=== PATIENT | female | born 1950 | race Caucasian/White ===

== ENCOUNTER 2023-03-23 10:56 | Emergency (ER) | payer OTHER, SELFPAY ==
[2023-03-23 10:56] VITALS: BP 153/89
--- NOTE | 2023-03-23 12:21 | ED.GENMED ---
History of Present Illness
General
Chief Complaint: Fall
Source: patient
Exam Limitations: none
Time Seen by Provider: 03/23/23 11:14
Nursing documentation reviewed up to this point in time: agreed with
Travel History
Have you had any contact with someone who has COVID-19?: No
Do you have any symptoms of coronavirus? Fever > 100 degrees, chills, cough, shortness of breath, sore throat, loss of taste or smell, muscle aches, or headache?: No
History of Present Illness
History of Present Illness:
pt is a 72 y/o F with h/o cad, htn, hld, bipolar
here after mechanical slip and fall on ice backwards onto buttocks. having pain in her lower back/sacrum as well as under both buttocks and in both hips
she had remote L THR and she has chronically shortened L leg which causes her to fall sometimes
she says she landed onto her buttocks, did strike her head but no LOC and no headache, no thinners
she was able to get herself back up and walk in her house. she took tylenol 1300 mg but is having pain with changing positions and walking
she has no radiating pain down legs, incontinence, fever, chills, headache, neck pain, cp, sob, abdominal pain.
Past History
Past History
ED Past Medical History: HTN, Hypercholesterolemia, Psychiatric (A/D, bipolar) and Other (Colitis, DVT in the past)
ED Past Surgical History: Gynecological and Orthopedic
Social History
Tobacco: Former smoker
Alcohol: None
Drug: None
Personal: Single
Living: alone
Employment: Employed
Family History
Family History: Other (COPD, lung cancer)
Review of Systems
Review of Systems
Allergies reviewed?: Yes
All Other Systems: Not applicable
Phy Exam
Physical Exam
Physical Exam:
GENERAL: Alert , in no apparent distress
HEAD: NCAT
NECK: no midline tenderness, active ROM intact, no paraspinal muscle tenderness;
EYE: pupils equal and reactive, EOMs intact.
ENT: o/p clr, mmm. no hemotympanum
CARDIAC: Regular rate and rhythm, no edema
LUNGS: Clear breath sounds bilaterally, no acute respiratory distress, no wheezes/rales/rhonchi
ABDOMEN: Soft, without focal tenderness, no r/g, no cvat
NEUROLOGICAL: Alert and oriented, no focal neuro deficits, CN intact, 5/5 strength, sensation intact
SKIN: Warm and dry,
back : sacral midline tendnress mild
bruising just lateral on the left of sacrum
tender under both buttocks b/l without bruising
pain with hip flexion and ortation on both sides
pain swith changing position in her back, flexion
neg straight leg raise
MUSCULOSKELETAL L leg significantly shorter than right, not rotated; this is chronic; pain with hip range of motion
PSYCH: Normal and appropriate interaction.
Course
Orders/Labs/Results
Orders:
Orders
03/23/23 11:44
Hips, Bilat 3-4 view W/AP Pelvis [CR Hips LACEY w/wo Pel 3-4 Vw] Urgent
Comment:
Reason For Exam: fall, L>R hip pain
Include a pelvis x-ray?: Yes
Lumbar Spine Complete, 4 View [CR Lumbar Spine Comp Min 4 Vw*] Urgent
Comment:
Reason For Exam: fall backwards, sacral pain
03/23/23 13:40
Tramadol HCl [Ultram] 50 mg PO NOW STA
Vital Signs
Initial and Last Documented VS:
Initial Vital Signs
Temp Pulse Resp BP Pulse Ox
98.4 F 77 22 153/89 96
03/23/23 10:56 03/23/23 10:56 03/23/23 10:56 03/23/23 10:56 03/23/23 10:56
Last Documented Vital Signs
Temp Pulse Resp BP Pulse Ox
98.4 F 74 19 147/88 96
03/23/23 10:56 03/23/23 13:08 03/23/23 13:08 03/23/23 13:08 03/23/23 13:08
MDM/Problems Addressed
Differential Diagnosis Includes:
sacral fracture, contusion, lumbar fracture
MDM/Problems Addressed:
72 y/o F iwth h/o HTN, no thinners but previous dvt
here with lower back pain buttock pain after mechanical fall on [id number] am outside her house
was able to get up and walk back into her house but has had increasing pain desptie tylenol [id number] mg this morning
pt has no weakness, numbness/tingling,incontinence
pt has not had any fever, chills
on exam she has ome bruising mild right buttock and some tenderness sacrum
neg straight leg raise, is ambulatory but with pain, change in position is painful
pt doesn't tolerate motrin much because of previous PUD
but she has had tramadol
and this doesn't interfere with her meds
xrays show findings c/w sacral fracture
may have L5 compression fx as well
pt has a wlaker at home she thinks and was able to walk well with walker here
would like to go home
d/c with pain meds, pt recommended.
*Critical Care Note
Total Time (30-74mins, 75-104mins- exclusive of procedures): Not Applicable
ED Attending Note
-
Portions of this chart may have been created with voice recognition software.� Occasional wrong word or��sound alike� substitutions may have occurred due to the inherent limitations of voice recognition software.
Discharge Plan
Departure
Patient Disposition: Home (Routine Discharge)
Date of Disposition: 03/23/23
Time of Disposition: 14:42
Patient with high blood pressure during this ER visit?: Yes
Condition: Fair
Covid-19: Not Applicable
Discharge Problem:
Closed sacral fracture
Instructions: Vertebral Compression Fracture (DC)
Prescriptions:
New
tramadol 50 mg tablet
50 mg PO BID PRN (Reason: Pain) Qty: 12 0RF
No Action
acetaminophen [Tylenol Arthritis Pain] 650 MG tablet extended release
1,300 mg PO BID
montelukast 10 MG tablet
10 mg PO HS
lamotrigine 100 MG tablet
200 mg PO BID
loratadine 10 MG tablet
10 mg PO DAILY
multivitamin with folic acid [Tab-A-Adrianna] 1 TABLET tablet
1 tab PO DAILY
calcium carbonate-vitamin D3 1 EACH tablet
1 tab PO BID
methylcellulose (laxative) 1 PACKET powder in packet
1 packet PO BIDPRN PRN (Reason: constipation)
venlafaxine [Effexor XR] 37.5 MG capsule,extended release 24hr
37.5 mg PO DAILY
guaifenesin [Mucus Relief ER] 600 MG tablet extended release 12hr
1,200 mg PO BIDPRN PRN (Reason: cough,congestion)
cholecalciferol (vitamin D3) 2,000 UNITS tablet
2,000 units PO DAILY
aspirin 81 MG tablet,delayed release (DR/EC)
81 mg PO HS
atorvastatin 40 MG tablet
40 mg PO QPM
acetaminophen 325 MG tablet
650 mg PO Q4HPRN PRN (Reason: headache, temp >101F) 0RF
polyethylene glycol 3350 17 GRAMS powder in packet
17 grams PO DAILY 0RF
metoprolol succinate 100 MG tablet extended release 24 hr
100 mg PO DAILY 0RF
quetiapine 100 MG tablet
200 mg PO HS 0RF
pantoprazole 40 MG tablet,delayed release (DR/EC)
40 mg PO DAILY 0RF
docusate sodium 100 MG capsule
100 mg PO BID 0RF
oxycodone 5 MG tablet
5 mg PO Q4HPRN PRN (Reason: moderate to severe) Qty: 18 0RF
enoxaparin 40 MG/0.4 ML syringe
40 mg SC DAILY 0RF
Referrals:
Tacho Diallo MD [Active] - Follow up in 5-7 days
Kiersten Richards DO [Family Provider] - Follow up in 2-3 days
Activity Restrictions/Additional Instructions:
It appears that you may have a sacral fracture. You also could have a lumbar compression fracture at L5. These can both cause the pain that you are having. Take your Tylenol twice a day as usual. You can add tramadol 2 or 3 times a day as
needed. If you are taking this medication you should use a stool softener because it can cause constipation. Please follow-up with your family doctor, you could benefit from physical therapy. Use the walker to help you get around. You can put
ice off-and-on your back. Follow-up with Dr. Diallo for additional treatment as needed. He is a pain specialist. Return for leg weakness, numbness, incontinence, fevers or chills or any concerns
Interventions
Interventions:
ED- Fall Risk Assessment Last Done: 03/23/23 11:51
*ED COVID-19 Vaccine History Last Done: 03/23/23 10:58
*Nursing Disposition Last Done: 03/23/23 15:02
ED-Musculoskeletal Assessment Last Done: 03/23/23 11:51
ED- Neurological Assessment Last Done: 03/23/23 11:51
ED-Skin Assessment Last Done: 03/23/23 13:09
Discharge Date and Time
Discharge Date/Time: 03/23/23 15:02
[2023-03-23 13:08] VITALS: BP 147/88
[2023-03-23] MEDS: ULTRAM 50 MG PO (13:45)
== END 2023-03-23 15:02 | disposition home or self-care (01) ==
LOC: EMR 10:56
PROVIDERS: EMERGENCY PHYSICIAN Emergency Medicine; FAMILY PHYSICIAN Family Medicine
DX: S32.10XA Unspecified fracture of sacrum, initial encounter for closed fracture (principal); W00.0XXA Fall on same level due to ice and snow, initial encounter; I10 Essential (primary) hypertension; Z87.891 Personal history of nicotine dependence
CPT/HCPCS: 99283; 72110; 73522

== ENCOUNTER → 2023-11-09 11:44 | Outpatient (REF) | payer OTHER, SELFPAY | LOC: RAD 11:44 | PROVIDERS: ATTENDING PHYSICIAN Internal Medicine Critical Care Medicine; FAMILY PHYSICIAN Family Medicine | DX: Z87.891 Personal history of nicotine dependence (principal) | CPT/HCPCS: 71271 ==

== ENCOUNTER → 2023-12-06 14:31 | Outpatient (REF) | payer OTHER, SELFPAY | LOC: WDC 14:31 | PROVIDERS: ATTENDING PHYSICIAN Family Medicine; FAMILY PHYSICIAN Family Medicine | DX: Z12.31 Encounter for screening mammogram for malignant neoplasm of breast (principal) | CPT/HCPCS: 77063; 77067 ==

== ENCOUNTER → 2024-11-15 10:22 | Outpatient (REF) | payer OTHER, SELFPAY | LOC: HWRAD 10:22 | PROVIDERS: ATTENDING PHYSICIAN Internal Medicine Critical Care Medicine; FAMILY PHYSICIAN Family Medicine | DX: Z87.891 Personal history of nicotine dependence (principal) | CPT/HCPCS: 71271 ==